=== PATIENT | female | born 1965 | race Caucasian/White ===

== ENCOUNTER 2017-04-16 12:30 | Outpatient (CLI) | payer BC ==
--- NOTE | 2017-04-16 13:10 | RAD ---
PA AND LATERAL VIEWS OF CHEST: Date: 04/16/17 HISTORY: Dyspnea. FINDINGS: Comparison made with exam of 11/11/12. The heart size is normal. The lungs are well expanded without focal areas of consolidation, pneumoth orax, or pleural effusions. There is evidence of old granulomatous disease. No acute osseous abnorma lities are noted. IMPRESSION: No radiographic evidence of acute cardiopulmonary process. POS: [facility]
== END 2017-04-16 12:31 | disposition home or self-care (01) ==
LOC: RAD 12:30
PROVIDERS: ATTEND Internal Medicine Critical Care Medicine
DX: R06.00 Dyspnea, unspecified (principal)
CPT/HCPCS: 71020